=== PATIENT | female | born 1995 | race Caucasian/White ===

== ENCOUNTER 2019-04-25 15:05 | Emergency (ER) | payer SELFPAY ==
[2019-04-25] MEDS ORDERED: CEFTRIAXONE INJ 250 MG VIAL IM ONE (16:08)
[2019-04-25] MEDS ORDERED: LIDOCAINE 1% INJ-PF (10 MG/ML) 30 ML SDV INJ ONE (16:08)
[2019-04-25] MEDS ORDERED: AZITHROMYCIN 250 MG TABLET PO ONE (16:08)
--- NOTE | 2019-04-25 16:08 | ER Document Report ---
HPI - HPI Time Seen by Provider: 04/25/19 15:50 Pain Level: Denies Context: Patient is a 23-year-old female presents to emergency department with a chief complaint of STD exposure. Patient states that on March 31 she was seen at the health department and treated for bacterial vaginosis. She states at that time she was tested for gonorrhea and chlamydia. Patient states she did not hear any results and thought she was negative. Patient reports she did get a certified letter in the mail a few weeks later and was told she had chlamydia. Patient states she did go to the emergency department in [place] and was treated for chlamydia. Patient states that she had been sleeping with her new partner and was concerned that she was re-exposed as they had sexual intercourse earlier this week. Patient states she would like to get rechecked. Patient denies vaginal discharge. Patient reports she is currently on her menstrual cycle which started today. Patient reports she does have an IUD. Patient denies pelvic pain, fever, nausea or vomiting. - REPRODUCTIVE Reproductive: DENIES: : Past Medical History - General Information source: Patient - Social History Smoking Status: Unknown if Ever Smoked Lives with: Spouse/Significant other Family History: None - Past Medical History Cardiac Medical History: Reports: None Pulmonary Medical History: Reports: None EENT Medical History: Reports: None Neurological Medical History: Reports: None Endocrine Medical History: Reports: None Renal/ Medical History: Reports: None Malignancy Medical History: Reports: None GI Medical History: Reports: None Musculoskeletal Medical History: Reports None Skin Medical History: Reports None Psychiatric Medical History: Reports: None Traumatic Medical History: Reports: None Infectious Medical History: Reports: None Past Surgical History: Reports: None Vertical Provider Document - CONSTITUTIONAL Agree With Documented VS: Yes Exam Limitations: No Limitations General Appearance: No Apparent Distress - INFECTION CONTROL TRAVEL OUTSIDE OF THE [place] IN LAST 30 DAYS: No - HEENT HEENT: Atraumatic, Normocephalic, PERRLA - RESPIRATORY Respiratory: Breath Sounds Normal, No Respiratory Distress - CARDIOVASCULAR Cardiovascular: Regular Rate, Regular Rhythm - GI/ABDOMEN Gastrointestinal: Abdomen Soft, Abdomen Non-Tender, Normal Bowel Sounds - NEURO Level of Consciousness: Awake, Alert, Appropriate - DERM Integumentary: Warm, Dry, No Rash Course - Re-evaluation Re-evalutation: 04/25/19 16:47 Patient does not have a urinary tract infection but did have +4 bacteria. Patient did recently get treated for bacterial vaginosis with 1 week of Flagyl. Patient states she is not currently having any vaginal discharge. I have treated patient prophylactically for gonorrhea and chlamydia. I discussed with the patient the importance of not having sexual intercourse or contact for the next 2 weeks and it is ideal to get rechecked to make sure the infection has improved. - Vital Signs Vital signs: Temp Pulse Resp BP Pulse Ox 98.3 F 68 18 149/90 H 94 04/25/19 15:08 04/25/19 15:08 04/25/19 15:08 04/25/19 15:08 04/25/19 15:08 - Laboratory Laboratory results interpreted by me: 04/25/19 16:47 Laboratory 04/25/19 04/25/19 16:15 16:20 Urine Color IBIS Urine Appearance SLIGHTLY-CLOUDY Urine pH 6.0 Ur Specific [place] 1.025 Urine Protein 100 H Urine Glucose (UA) NEGATIVE Urine Ketones NEGATIVE Urine Blood LARGE H Urine Nitrite NEGATIVE Urine Bilirubin NEGATIVE Urine Urobilinogen 4.0 H Ur Leukocyte Esterase TRACE H Urine WBC (Auto) 8 Urine RBC (Auto) 17 Urine Bacteria (Auto) TRACE Squamous Epi Cells Auto 3 Urine Mucus (Auto) MANY Urine Ascorbic Acid NEGATIVE Urine HCG, Qual NEGATIVE Bacteria (Wet Prep) 4+ BACTERIA SEEN Trichomonas (Wet Prep) NO TRICHOMONAS SEEN Vaginal WBC 1+ WBCS SEEN Vaginal RBC 4+ RBCS SEEN Vaginal Yeast NO YEAST SEEN Procedures - Pelvic Exam Pelvic exam Time completed: 16:20 Cultures obtained: Yes Wet prep obtained: Yes Witnessed by: Nurse Tech Notes: 04/25/19 16:33 External genitalia was unremarkable. Patient did have blood within the vaginal vault. Patient is on her menstrual cycle. I was able to visualize the cervix and IUD strings were noted. Discharge - Discharge Clinical Impression: STD exposure Condition: Stable Disposition: HOME, SELF-CARE Additional Instructions: Today you were seen in the emergency department for a possible STD exposure. We have tested you for gonorrhea and chlamydia. These results will be available in the next 24 to 48 hours. You will be contacted. We have gone ahead and treated you prophylactically for both gonorrhea and chlamydia. These medications are one-time dose and do not require a prescription. Please refrain from sexual activity or intercourse over the next 2 weeks. Ideally you should be retested to make sure the infection has cleared if you are told that it is positive. You should also make sure that your partner has been treated appropriately and does not have an infection anymore. Please return to emergency department if you develop testicular pain, swelling, discharge or any other concerning signs or symptoms.
[2019-04-25] MEDS ORDERED: CEFTRIAXONE INJ 250 MG VIAL ONE (16:29)
[2019-04-25] MEDS ORDERED: LIDOCAINE 1% INJ-PF (10 MG/ML) 30 ML SDV ONE (16:29)
[2019-04-25] MEDS ORDERED: AZITHROMYCIN 250 MG TABLET ONE (16:32)
[2019-04-25 16:34] LABS: BACTERIA (WET MOUNT) 4+ BACTERIA SEEN; RBCS (WET MOUNT) 4+ RBCS SEEN; T.VAGINALIS (WET MOUNT) NO TRICHOMONAS SEEN; WBCS (WET MOUNT) 1+ WBCS SEEN; YEAST (WET MOUNT) NO YEAST SEEN
[2019-04-25 16:41] LABS: APPEARANCE,URINE SLIGHTLY-CLOUDY; BILIRUBIN,URINE NEGATIVE (NEGATIVE); COLOR,URINE AMBER; GLUCOSE, URINE NEGATIVE (NEGATIVE); KETONES,URINE NEGATIVE (NEGATIVE); LEUKOCYTE ESTERASE,URINE TRACE (NEGATIVE); NITRITE,URINE NEGATIVE (NEGATIVE); PROTEIN,URINE 100 mg/dL (NEGATIVE); URINE SPECIFIC GRAVITY 1.025
[2019-04-25 16:48] VITALS: BP 136/84
[2019-04-25 17:59] LABS: CHLAM PCR NOT DETECTED (NOT DETECT)
== END 2019-04-25 17:00 | disposition home or self-care (01) ==
LOC: ER 15:05
DX: Z20.2 Contact with and (suspected) exposure to infections with a predominantly sexual mode of transmission (principal); Z97.5 Presence of (intrauterine) contraceptive device
CPT/HCPCS: 99283; 96372; 87210; 81025; 81001; 87491; 87591; J3490; J0696

== ENCOUNTER 2019-11-20 23:46 | Emergency (ER) | payer SELFPAY ==
[2019-11-20 23:56] VITALS: BP 156/98
--- NOTE | 2019-11-21 00:13 | ER Document Report ---
HPI - HPI Time Seen by Provider: 11/21/19 00:01 Context: Patient is a 24-year-old female that comes to the emergency department for chief complaint of sore throat developing over the past day. She states she also felt feverish prior to arrival but she took Tylenol 45 minutes before she got here. She denies congestion, ear pain, or noted cough. She denies nausea, vomiting, abdominal pain, chest pain, shortness of breath. She denies any obvious sick contacts. She denies any daily medications, denies , denies any reported past medical history except occasionally getting bronchitis. - REPRODUCTIVE Reproductive: DENIES: : Past Medical History - General Information source: Patient - Social History Smoking Status: Never Smoker Drug Abuse: None Lives with: Family Family History: None Pulmonary Medical History: Reports: Hx Bronchitis Renal/ Medical History: Denies: Hx Peritoneal Dialysis Surgical Hx: Negative - Immunizations Immunizations up to date: Yes Hx Diphtheria, Pertussis, Tetanus Vaccination: Yes Vertical Provider Document - CONSTITUTIONAL General Appearance: WD/WN, No Apparent Distress - INFECTION CONTROL TRAVEL OUTSIDE OF THE [place] IN LAST 30 DAYS: No - HEENT HEENT: Atraumatic, Normocephalic. negative: Normal ENT Exam - Mild tonsillitis with erythema but no patchy rash, exudates, uvula involvement, abscess, or airway compromise. Unremarkable nasal exam without tenderness or congestion, unremarkable ears, eyes - NECK Neck: Other - Mild anterior cervical adenopathy bilaterally - RESPIRATORY Respiratory: Breath Sounds Normal, No Respiratory Distress. negative: Chest Non-Tender - CARDIOVASCULAR Cardiovascular: Regular Rate, Regular Rhythm. negative: Tachycardia - GI/ABDOMEN Gastrointestinal: Abdomen Soft, Abdomen Non-Tender. negative: Abdomen Tender, Spleenomegaly - BACK Back: Normal Inspection - MUSCULOSKELETAL/EXTREMETIES Musculoskeletal/Extremeties: MAEW, FROM, Non-Tender - NEURO Level of Consciousness: Awake, Alert, Appropriate Motor/Sensory: No Motor Deficit, No Sensory Deficit - DERM Integumentary: Warm, Dry, No Rash Course - Re-evaluation Re-evalutation: Patient has tonsillitis without exudates, mild lymphadenopathy, she reported cough in triage but denies cough, congestion, or other complaints to me. She has no other symptoms on my exam, soft abdomen, she is alert and well-appearing. She does report feeling fevers prior to arrival. She states she feels like she has strep throat. Strep test is negative. I discussed with patient. I do suspect this is viral. Because of her developing symptoms I did discuss coronavirus testing, however patient declined, I do feel this is appropriate because patient has no respiratory symptoms, no hypoxia, no risk factors for severe illness in regards to this. I did recommend quarantine despite this because of negative strep and her developing symptoms, she was treated with dexamethasone for her pharyngitis, throat culture is pending. Discussed return precautions. Patient states understanding and agreement. Stable and well-appearing at time of discharge. - Vital Signs Vital signs: Temp Pulse Resp BP Pulse Ox 98.6 F 87 16 156/98 H 99 11/20/19 23:53 11/20/19 23:53 11/20/19 23:53 11/20/19 23:53 11/20/19 23:53 Discharge - Discharge Clinical Impression: Feels feverish Pharyngitis Qualifiers: Pharyngitis/tonsillitis etiology: unspecified etiology Qualified Code(s): J02.9 - Acute pharyngitis, unspecified Condition: Stable Disposition: HOME, SELF-CARE Additional Instructions: Your strep test is negative. Your evaluation is suggestive of a developing throat infection, I suspect this is viral, however we do have a throat culture pending, if this is positive for bacterial infection we will call you and prescribe an antibiotic. You been treated for your initial symptoms, take 600 mg of ibuprofen and 1000 mg of Tylenol every 6 hours for your symptoms, drink plenty of fluids, rest. Since this is still possibly the coronavirus I do recommend self quarantine for 2 weeks to avoid spreading this to anyone else. Return for any concerning symptoms including difficulty swallowing, difficulty breathing, chest pain, continued spiking fevers, or any other concerning or worsening symptoms.
[2019-11-21] MEDS ORDERED: DEXAMETHASONE SOD PHOS INJ 10 MG/1 ML VIAL IM ONE (00:55)
== END 2019-11-21 01:27 | disposition home or self-care (01) ==
LOC: ER 23:46
DX: J02.9 Acute pharyngitis, unspecified (principal)
CPT/HCPCS: 99283; 96372; 87070; 87880; J1100